=== PATIENT | male | born 1965 | race Caucasian/White ===

== ENCOUNTER 2018-07-10 10:25 | Outpatient (CLI) | payer MEDICAID | END 2018-07-10 10:26 | disposition home or self-care (01) | LOC: C.PAT 10:25 | DX: M66.872 Spontaneous rupture of other tendons, left ankle and foot (principal) ==

== ENCOUNTER 2018-07-15 08:27 | Day surgery (SDC) | payer MEDICAID ==
[2018-07-15 09:16] VITALS: BMI 32.0
[2018-07-15] MEDS ORDERED: ceFAZolin 1 gm in NS 2 GM/200 ML BAG IVPB ONE (10:15)
[2018-07-15] MEDS ORDERED: Bupivacaine 0.25% 20 ML INJ IJ ONE (10:16)
[2018-07-15] MEDS ORDERED: Lidocaine 2% MPF (5 ml) Inj ONE (10:16)
[2018-07-15] MEDS ORDERED: Propofol 10 mg/ml Inj (20 ML) ONE (10:49)
[2018-07-15] MEDS ORDERED: Midazolam 2 MG/2 ML VIAL ONE (10:49)
[2018-07-15] MEDS ORDERED: LIDOCAINE 2% PF (2ML) ONE (11:39)
--- NOTE | 2018-07-15 11:55 | PCM.SURG1 ---
Surgeon's Initial Post Op Note - Surgeon's Notes Surgeon: ronan Rubber Cutter: n/a Type of Anesthesia: IV Sedation Pre-Operative Diagnosis: n/a Operative Findings: n/a Post-Operative Diagnosis: same Operation Performed: n/a Specimen/Specimens Removed: none Estimated Blood Loss: EBL {In ML}: 0 Blood Products Given: N/A Drains Used: No Drains Post-Op Condition: Good Date of Surgery/Procedure: 07/15/18 Time of Surgery/Procedure: 01:11
--- NOTE | 2018-07-15 11:57 | PCM.SURG1 ---
Surgeon's Initial Post Op Note - Surgeon's Notes Surgeon: Dr Arellano Diabetes Manager: Ana Arreola PGY1 Type of Anesthesia: IV Sedation Anesthesia Administered By: Dr Baker Pre-Operative Diagnosis: left achilles tendon tear Operative Findings: see dictation. materials: 1 cc of amniovo, 3-0 prolene. Injectibles- 20 cc of .5% maricaine and 2% LIDOCAINE plain Post-Operative Diagnosis: same Operation Performed: left achilles tendon debridement with the use of tenex and amniovo injection Specimen/Specimens Removed: none Estimated Blood Loss: EBL {In ML}: 3 Blood Products Given: N/A Drains Used: No Drains Post-Op Condition: Good Date of Surgery/Procedure: 07/15/18 Time of Surgery/Procedure: 11:57
[2018-07-15] MEDS ORDERED: Oxycodone/Acetaminophen 5/325 mg Tab PO PRN ×2 (11:59)
[2018-07-15] MEDS ORDERED: HYDROmorphone 0.5 mg/0.5 ml ISec IVP PRN (12:13)
[2018-07-15] MEDS ORDERED: Lactated Ringer's 1,000 ML IV PRN (12:13)
[2018-07-15] MEDS ORDERED: Lactated Ringer's 1,000 ML IV SCH (12:15)
[2018-07-15 14:16] VITALS: BP 127/73; PULSE 66; RESP 18; TEMP 98; O2SAT 100
--- NOTE | 2018-07-17 08:55 | PCM.OP ---
Operative Report - Operative Report Date of Surgery/Procedure: 07/15/18 Time of Surgery/Procedure: 12:00 Surgeon: Dr. Arellano Nursing Program Director: Ana Arreola PGY1, [place] MS4 Anesthesia/Sedation: IV sedation Pre-Operative Diagnosis: Left achilles tendon tear Post-Operative Diagnosis: same Indication for Surgery: The patient is a 52 year-old male with the above diagnoses. The patient has exhausted all conservative treatment at this time and now requires surgical intervention. The patient signed the consent after careful explanation of risks, benefits, complication and alternatives for surgical procedure. No guarantees were given nor implied. Operative Findings: The patient was brought in to the operating room and placed on the operating room table in a prone position. Timeout was performed for identification of the correct patient and procedure. After induction of IV sedation, the patient received a total of 20CC of 1:1 mixture of 2% lidocaine plain and 0.5% marcaine plain in a local block type fashion to the left posterior distal aspect of the leg. Once local anesthesia was achieved, the left foot and ankle was then prepped and draped in normal sterile manner. No tourniquet was used during the procedure. Procedure/Operation Description: Attention was driven towards the posterior medial aspect of the left ankle superior to the Achilles tendon insertion. A sterile sleeve was placed over the ultrasound transducer and a diagnostic ultrasound was performed. The anatomy was identified and the diseased, thickened area of the Achilles tendon was visualized. A #15 blade was then introduced to create a tract down to the diseased Achilles tendon, one stab incision placed on the posterior medial aspect of the left ankle superior to the Achilles tendon insertion. 1The TX1 handpiece was introduced. Once the tip was located in the hypoechoic lesion, the foot pedal was depressed and the area was debrided and tissue excised. Once all the hypoechoic lesion was excised, amnio cells was injected into the area around the stab incision sites. Following the procedure, 3-0 prolene was used to suture to reapproximate the skin edges Estimated Blood Loss: 3 cc Complications: none Discharge & Condition: The patient tolerated the anesthesia and procedure well and was escorted to the recovery room with vital signs stable and neurovascular status intact to the left foot. The patient will follow up with Dr. Arellano as an outpatient
== END 2018-07-15 14:18 | disposition home or self-care (01) ==
LOC: C.SDS 08:27
PROVIDERS: ATTEND Podiatrist Foot & Ankle Surgery
DX: S86.012A Strain of left Achilles tendon, initial encounter (principal); E78.5 Hyperlipidemia, unspecified; Z79.899 Other long term (current) drug therapy
CPT/HCPCS: 11043; 20551; J0690; J1170; J2250; J2704; J3010